=== PATIENT | male | born 1985 | race Two or more races ===

== ENCOUNTER → 2016-04-18 | Outpatient (REF) | payer OTHER ==
[~2016-04-18] MED LIST: CETI10TA PO; ISON300T4 PO; NAPR500T2 PO; PROA1AER IN; SERT25TA85 PO; VITA-122 PO; ZOLO100T PO; ZONI25CA2 PO
== END ==
LOC: M SMT 16:59
PROVIDERS: ATTEND Nurse Practitioner Women's Health
DX: R30.0 Dysuria (principal)